=== PATIENT | female | born 1980 ===

== ENCOUNTER 2021-06-11 19:09 | Emergency (ER) | payer BC, SELFPAY ==
[2021-06-11 19:13] VITALS: BP 142/93; PULSE 78; RESP 14; TEMP 36.9; O2SAT 100
[2021-06-11 19:33] LABS: Bilirubin Negative (Negative); Blood Small (Negative); Clarity Sl Cloudy (Clear); Glucose Negative (Negative); Ketones Negative (Negative); Leukocyte Esterase Large (Negative); Nitrite Negative (Negative); Urobilinogen 0.2 EU/dL (Up TO 0.2)
--- NOTE | 2021-06-11 19:39 | ED.GENADUL_ITS ---
Discharge Plan Disposition Patient Disposition: HOME Condition: Stable Discharge Details Clinical Impression: Urinary tract infection Primary Care Provider: Unknown,Unknown ED Provider: Hanny Alvarenga Home Meds and New Rx's Prescriptions: New cephalexin 500 mg capsule 500 mg PO TID Qty: 11 0RF Continued bupropion HCl [Wellbutrin XL] 300 mg Tablet Extended Release 24 Hr 450 mg PO DAILY 0RF escitalopram oxalate [Lexapro] 20 mg Tablet 25 mg PO DAILY 0RF multivitamin Tablet 1 tab PO DAILY 0RF ergocalciferol (vitamin D2) 1,000 unit Capsule 5,000 mcg PO DAILY 0RF Discharge Instructions Instructions: Urinary Tract Infection in Women (ED) Referrals: Unknown,Unknown [Primary Care Provider] - (primary care as needed) Medical Decision Making patient presents with symptoms consistent with urinary tract infection, no symptoms of pyelonephritis. urinalysis with culture pending will start on cephalexin Medical Records Medical records reviewed: Yes I reviewed the patient's medical records. Lab Data Lab results reviewed: Yes I reviewed the patient's lab results. Labs: Laboratory Results - last 24 hr 06/11/21 19:30 Urine Color Yellow Urine Clarity Sl Cloudy Urine pH 7.0 Ur Specific [place] 1.020 Urine Protein Negative Urine Ketones Negative Urine Blood Small H Urine Nitrite Negative Urine Bilirubin Negative Urine Urobilinogen 0.2 Ur Leukocyte Esterase Large H Urine RBC 20-50 H Urine WBC 20-50 H Ur Epithelial Cells Moderate Urine Crystals Negative Urine Bacteria Rare Urine Mucus Negative Urine Other Mod Transitional Ur Culture Indicated? Yes Urine Glucose Negative HPI General Date/Time Provider Initiated Documentation: 06/11/21 19:11 . Limitations to Documentation: no limitations . Information obtained by: patient . HPI Narrative: frequency urgency, malaise, chills and low grade temp, no abdominal pain, flank pain, nausea or vomiting. recent biopsy breast left no drainage or redness at site Related Data Home Medications Medication Instructions Recorded Confirmed bupropion HCl 300 mg 24 hr tablet, 450 mg PO DAILY 06/11/21 06/11/21 extended release (Wellbutrin XL) cephalexin 500 mg capsule 500 mg PO TID #11 cap 06/11/21 ergocalciferol (vitamin D2) 1,000 5,000 mcg PO DAILY 06/11/21 06/11/21 unit capsule escitalopram oxalate 20 mg tablet 25 mg PO DAILY 06/11/21 06/11/21 (Lexapro) multivitamin 1 tab PO DAILY 06/11/21 06/11/21 Previous Rx's Medication Instructions Recorded cephalexin 500 mg capsule 500 mg PO TID #11 cap 06/11/21 Allergies Allergy/AdvReac Type Severity Reaction Status Date / Time moxifloxacin [From Avelox] Allergy Severe Hives Unverified 06/11/21 19:27 codeine AdvReac Intermediate vomits Unverified 06/11/21 19:27 General Stated Complaint: Urinary YAW: 3 Review of Systems All systems reviewed & are unremarkable except as noted in HPI and below Constitutional Constitutional: Reports chills, Reports fever(s) and Reports malaise Cardiovascular Cardiovascular: Denies chest pain Respiratory Respiratory: Denies cough Gastrointestinal Gastrointestinal: Denies abdominal pain, Denies constipation, Denies diarrhea and Denies nausea Genitourinary Genitourinary: Reports urinary urgency (frequency and dysuria) and Denies vaginal discharge PFSH All Active Problems (Updated 06/11/21 @ 19:42 by Hanny Alvarenga NP) Urinary tract infection (Acute) Medical History (Updated 06/11/21 @ 19:42 by Hanny Alvarenga NP) Breast CA Surgical History (Updated 06/11/21 @ 19:32 by Kassi Conte) History of appendectomy History of cholecystectomy Social History Smoking/Tobacco Use Status: Never Smoking risk assessment performed?: Yes Alcohol Intake: current Alcohol Intake frequency: a few times a week Drug use: Never Substance use type: does not use Do you feel safe at home: Yes Do you feel safe in your relationship?: Yes Exam Const General: cooperative and no acute distress Nutritional Appearance: average body habitus Orientation: alert, awake and oriented x3 HENMT Head: normal to inspection, normocephalic and atraumatic Mouth: oral mucosae normal Resp Effort & Inspection: normal respiratory effort Cardio Rate: regular rate Rhythm: regular rhythm GI Inspection: normal to inspection Palpation: soft Auscultation: normal bowel sounds General: deferred Neuro General: patient alert, patient awake and patient oriented x3 Extrem General: normal to inspection and full ROM Course Vital Signs Vital signs: Vital Signs Temperature 36.9 C 06/11/21 19:13 Pulse 78 06/11/21 19:13 Respiratory Rate 14 06/11/21 19:13 Blood Pressure 142/93 H 06/11/21 19:13 Pulse Oximetry 100 06/11/21 19:13 Temperature 36.9 C 06/11/21 19:13 Temperature Source Skin 06/11/21 19:13 Pulse 78 06/11/21 19:13 Respiratory Rate 14 06/11/21 19:13 Respiratory Effort 06/11/21 19:22 Blood Pressure 142/93 H 06/11/21 19:13 Blood Pressure Position Sitting 06/11/21 19:13 Pulse Oximetry 100 06/11/21 19:13 Oxygen Delivery Method Room Air 06/11/21 19:13 Oxygen Flow Rate 0 06/11/21 19:13 Pain Level 6 06/11/21 19:32 Comment 06/11/21 19:13 Lab/Test Results Lab/Test Results: Laboratory Tests Range/Units 06/11/21 19:30 Urine Color (Yellow) Yellow Urine Clarity (Clear) Sl Cloudy Urine pH (5-8) 7.0 Ur Specific [place] (1.005-1.025) 1.020 Urine Protein (Negative) mg/dL Negative Urine Ketones (Negative) mg/dL Negative Urine Blood (Negative) Small H Urine Nitrite (Negative) Negative Urine Bilirubin (Negative) Negative Urine Urobilinogen (Up TO 0.2) EU/dL 0.2 Ur Leukocyte Esterase (Negative) Large H Urine Glucose (Negative) mg/dL Negative POC- Test(urine) Negative PAWSS Have you Been Recently Intoxicated or Drunk Within the Last 30 days?: No Have you Ever Experienced Previous Episodes of Alcohol Withdrawal?: No Have you ever Experienced Withdrawal Seizures?: No Have you ever Experienced Delirium Tremens(DT)s?: No Have you ever undergone Alcohol Rehabilitation Treatment (i.e, inpt ot outpatient treatment programs)?: No Have you ever Experienced Blackouts?: No Have you ever Combined Alcohol with other Downers within the last 90 days?: No Have you ever Combined Alcohol with any other Substance of Abuse during the last 90 days?: No Positive Blood Alcohol level on Presentation? [PCS.BAL]: No Evidence of Increased Autonomic Activity (i.e. HR>120, tremor, sweating, agitation, nausea)?: No Result: 0
[2021-06-11] MEDS: Phenazopyridine 100 MG TAB, 2 TABS/BTL PO (19:55)
[2021-06-11] MEDS: Cephalexin 500 MG CAP, 4 CAPS/BTL PO (19:55)
[2021-06-11 19:58] LABS: Epithelial Cells Moderate HPF (Negative); Other Cells Mod Transitional (Negative); RBC 20-50 HPF (0-2); WBC 20-50 HPF (0-5)
[2021-06-11 19:59] LABS: Bacteria Rare HPF (Negative); C & S Indicated? Yes; Crystals Negative HPF (Negative); Mucus Negative (Negative)
== END 2021-06-11 20:00 | disposition home or self-care (01) ==
PROVIDERS: Emergency Provider Nurse Practitioner Acute Care
DX: N39.0 Urinary tract infection, site not specified (principal); B96.89 Other specified bacterial agents as the cause of diseases classified elsewhere
CPT/HCPCS: 81025; 99283; 81003; 81015; 87086

== ENCOUNTER 2021-11-14 18:28 | Outpatient (REF) | payer BC, SELFPAY ==
[2021-11-14 20:50] LABS: Abs Immature Grans 0.04 10^3/uL (0.0-0.06); Absolute Basophil Count 0.03 10^3/uL (0.0-0.2); Absolute Eosinophil Count 0.28 10^3/uL (0.0-0.7); Absolute Lymphocyte Count 2.55 10^3/uL (1.2-3.4); Absolute Monocyte Count 0.53 10^3/uL (0.1-0.8); Absolute Neutrophil Count 5.14 10^3/uL (1.2-6.7); Basophils % 0.4; Eosinophils % 3.3; HCT 41.7 % (36.0-46.0); HGB 13.3 g/dL (11.2-15.7); Immature Grans % 0.5; Lymphocytes % 29.8; MCH 26.9 pg (27.0-33.0); MCHC 31.9 % (32.0-36.0); MCV 84 fL (80-95); MPV 10.6 fL (8.0-11.0); Monocytes % 6.2; Neutrophils % 59.8; Platelet Count 337 10^3/uL (130-400); RBC 4.95 10^6/uL (3.93-5.22); RDW-SD 39.3 fL; WBC 8.57 10^3/uL (4.4-10.8)
[2021-11-14 20:58] LABS: ALT 257 U/L (14-59); AST 252 U/L (15-37); Alkaline Phosphatase 157 U/L (46-116); Anion Gap 9.4 mmol/L (3-11); BUN 14 mg/dL (7-18); Bilirubin, Total 0.2 mg/dL (0.2-1.0); CO2 26.6 mmol/L (21.0-32.0); CREATININE 1.1 mg/dL (0.55-1.02); Calcium 8.7 mg/dL (8.5-10.1); Chloride 104 mmol/L (98-107); Estimated GFR 55.01 (mL/min/1.73m2); Glucose 95 mg/dL (74-106); Potassium 4.4 mmol/L (3.5-5.1); Sodium 140 mmol/L (136-145); Total Protein 7.3 g/dL (6.4-8.2)
[2021-11-14 21:08] LABS: Albumin 3.7 g/dL (3.4-5.0); C-Reactive Protein 0.75 mg/dL (0.0-0.3)
== END 2021-11-14 18:29 | disposition home or self-care (01) ==
LOC: LBN 18:28
PROVIDERS: Visit Provider Nurse Practitioner Family
DX: R59.0 Localized enlarged lymph nodes (principal)
CPT/HCPCS: 80053; 85025; 86140